=== PATIENT | male | born 2000 | race African-American/Black ===

== ENCOUNTER 2018-06-28 16:58 | Emergency (ER) | payer OTHER ==
[~2018-06-28] VITALS: Ht 180.3 cm; Wt 65.9 kg
[2018-06-28 17:11] VITALS: BP 118/69; TEMP 99.6
[2018-06-28 17:33] VITALS: PULSE 91
== END 2018-06-28 17:33 | disposition home or self-care (01) ==
LOC: COL.ER 16:58
DX: Z02.83 Encounter for blood-alcohol and blood-drug test (principal); F17.210 Nicotine dependence, cigarettes, uncomplicated